=== PATIENT | male | born 1960 | race Caucasian/White ===

== ENCOUNTER → 2020-03-25 | Outpatient (CLI) | payer OTHER ==
[~2020-03-25] MED LIST: ASPI81TA45 PO; CALC-126 PO; DIPH25CA61 PO; DOXY100T PO; FAMO-79 PO; GARL1TAB2 PO; HYDR500C PO; IBUP200C8 PO; LISI-170 PO; LISI30TA4 PO; LORA10TA75 PO; MULT-658 PO; NAPR220C2 PO; OMEG-76 PO; TAMS-11 PO; TURM500C4 PO; ibuprofen PO; naproxen PO
[2020-03-25 14:07] LABS: ALBUMIN 3.7 g/dL (3.4-5.0); ANION GAP 6 mmol/L (5-15); BASOPHILS % (AUTO) 0 % (0-1); CALCIUM 8.3 mg/dL (8.5-10.1); CHLORIDE 102 mmol/L (98-107); EOSINOPHILS % (AUTO) 1 % (1-7); LYMPHOCYTES % (AUTO) 35 % (22-44); MEAN CORPUSCULAR HEMOGLOBIN 38.6 pg (27.5-34.5); MEAN CORPUSCULAR HGB CONC 34.6 g/dL (33.2-36.2); MEAN PLATELET VOLUME 6.3 fL (7.4-10.4); MONOCYTES % (AUTO) 12 % (2-9); NEUTROPHILS % (AUTO) 52 % (42-75); PLATELET COUNT 490 x10^3/uL (130-400); RED BLOOD COUNT 3.42 x10^6/uL (4.38-5.82); RED CELL DISTRIBUTION WIDTH 14.1 % (9.4-14.8)
[2020-03-25 14:10] LABS: ALANINE AMINOTRANSFERASE 20 U/L (12-78); ALKALINE PHOSPHATASE 54 U/L (45-117); BILIRUBIN,TOTAL 0.4 mg/dL (0.2-1.0); CREATININE 0.79 mg/dL (0.7-1.3); TOTAL PROTEIN 6.8 g/dL (6.4-8.2)
[2020-03-25 14:50] LABS: MD SCAN
== END | disposition home or self-care (01) ==
LOC: STAR 12:24
PROVIDERS: ATTEND Orthopaedic Surgery
DX: Z01.812 Encounter for preprocedural laboratory examination (principal); Z20.822 Contact with and (suspected) exposure to COVID-19; M19.011 Primary osteoarthritis, right shoulder; I25.2 Old myocardial infarction
CPT/HCPCS: 80053; 85025; 87081; 87635; 93005

== ENCOUNTER 2020-03-31 09:16 | Inpatient (IN) | payer OTHER ==
[~2020-03-31] VITALS: Ht 195.6 cm; Wt 98.9 kg
[~2020-03-31 09:16] MED LIST changes: +CLINDAMYCIN 150 MG/ML, 6ML ONE; +EPINEPHRINE 1 MG/ML, 1ML ONE; +KETOROLAC 60 MG/2 ML ONE; +ROPIvacaine/PF 0.2%, 20 ML ONE; +SODIUM CHLORIDE 0.9% 50 ML ONE; +TRANEXAMIC ACID 100 MG/ML, 10ML ONE; +VANCOMYCIN 1,000 MG ONE
[2020-03-31] MEDS ORDERED: CELE400C PO (09:49)
[2020-03-31] MEDS ORDERED: OXYC20TA42 PO (09:49)
[2020-03-31] MEDS ORDERED: ACETAMINOPHEN 500 MG TABLET PO ONE (10:00)
[2020-03-31] MEDS ORDERED: LACTATED RINGERS 1,000 ML IV SCH (10:00)
[2020-03-31] MEDS ORDERED: CHLORHEXIDINE 15 ML UDC MM ONE (10:00)
[2020-03-31] MEDS ORDERED: BUPIVACAINE LIPOSOME/PF 10ML INFIL ONE (10:02)
[2020-03-31 10:12] VITALS: BP 115/72
[2020-03-31] MEDS ORDERED: MIDAZOLAM 1 MG/ML, 2ML ONE (10:32)
[2020-03-31] MEDS ORDERED: FENTANYL PF 100 MCG/2ML ONE (10:32)
[2020-03-31] MEDS ORDERED: BUPIVACAINE/PF 0.25% ONE (10:52)
[2020-03-31] MEDS ORDERED: morphine SULFATE/PF 1 MG/ML, 10ML ONE (10:54)
[2020-03-31] MEDS ORDERED: OXYcodone 5 MG/5 ML ORAL.SOL UDC PO PRN (12:30)
[2020-03-31] MEDS ORDERED: HYDROmorphone 1 MG/ML, 1ML INJ IVPush PRN (12:30)
[2020-03-31] MEDS ORDERED: hydrALAzine 20 MG/ML, 1ML IV PRN (12:30)
[2020-03-31] MEDS ORDERED: ALBUTEROL SULFATE 2.5 MG/3 ML NPPB PRN (12:30)
[2020-03-31] MEDS ORDERED: MEPERIDINE/PF 25MG/0.5ML IVPush PRN (12:30)
[2020-03-31] MEDS ORDERED: PROMETHAZINE 25 MG/ML, 1ML IVPush PRN (12:30)
[2020-03-31] MEDS ORDERED: LORazepam 2 MG/ML, 1ML IVPush PRN (12:30)
[2020-03-31] MEDS ORDERED: FENTANYL PF 100 MCG/2ML IV PRN (12:30)
[2020-03-31] MEDS ORDERED: LABETALOL 5MG/ML, 20ML IV PRN (12:30)
[2020-03-31] MEDS ORDERED: ROCURONIUM 10MG/ML,5ML ONE (13:00)
[2020-03-31] MEDS ORDERED: CEFAZOLIN 1,000 MG ONE (13:00)
[2020-03-31] MEDS ORDERED: GLYCOPYRROLATE 0.2MG/1ML, 5ML ONE (13:00)
[2020-03-31] MEDS ORDERED: DEXAMETHASONE 4 MG/ML, 1ML ONE (13:00)
[2020-03-31] MEDS ORDERED: NEOSTIGMINE 1 MG/ML, 10ML ONE (13:00)
[2020-03-31] MEDS ORDERED: PROPOFOL 10 MG/ML, 20ML ONE (13:00)
[2020-03-31] MEDS ORDERED: ONDANSETRON 2MG/ML, 2ML ONE (13:00)
== END 2020-03-31 17:05 | disposition home or self-care (01) | DRG 483 ==
LOC: ORIP 09:16
PROVIDERS: ADMIT Orthopaedic Surgery; ATTEND Orthopaedic Surgery
PROC: 0RCJ0ZZ Extirpation of Matter from Right Shoulder Joint, Open Approach (ICD-10-PCS; 2020-03-31)
PROC: 0RRJ0JZ Replacement of Right Shoulder Joint with Synthetic Substitute, Open Approach (ICD-10-PCS; principal; 2020-03-31 12:30)
DX: M19.011 Primary osteoarthritis, right shoulder (principal); I10 Essential (primary) hypertension; Z87.891 Personal history of nicotine dependence; Z72.89 Other problems related to lifestyle
CPT/HCPCS: J0171; J0690; J1100; J1885; J2250; J2274; J2405; J2704; J2710; J2795; J3010; J3370; J7120